=== PATIENT | male | born 1980 | race Caucasian/White ===

== ENCOUNTER 2018-04-22 05:01 | Emergency (ER) | payer MEDICAID ==
[~2018-04-22] VITALS: Ht 180.3 cm; Wt 91.0 kg
[~2018-04-22 05:01] MED LIST: ibuprofen
[2018-04-22 07:34] LABS: BASOPHILS % 0.5 % (0.0-2.0); EOSINOPHILS % 2.5 % (0.0-5.0); HEMATOCRIT. 45.4 % (42.0-52.0); HEMOGLOBIN. 15.5 g/dL (14.0-18.0); LYMPHOCYTES % 47.5 % (20.0-50.0); MEAN CORPUSCULAR HEMOGLOBIN 32.3 pg (28.0-32.0); MEAN CORPUSCULAR VOLUME 94.7 fL (80.0-94.0); MEAN PLATELET VOLUME 8.8 fl (7.4-10.4); MONOCYTES % 9.2 % (2.0-8.0); NEUTROPHILS % 40.3 % (40.0-76.0); PLATELET 169 x1000/uL (130-400); RED CELL DISTRIBUTION WIDTH 12.7 % (11.6-14.6)
[2018-04-22 07:35] LABS: CHLORIDE 105 mEq/L (98-107)
[2018-04-22 07:37] LABS: INR 1.1; PROTHROMBIN TIME 10.7 sec (9.1-11.1)
[2018-04-22] MEDS ORDERED: METOCLOPRAMIDE HCL 10MG/2ML VIAL IV ONE (07:45)
[2018-04-22] MEDS ORDERED: DIPHENHYDRAMINE 50MG/ML VIAL IV ONE (07:45)
[2018-04-22] MEDS ORDERED: SODIUM CHLORIDE 0.9% 1,000 ML IV ONE (07:45)
[2018-04-22 09:19] VITALS: BP 124/74
== END 2018-04-22 09:19 | disposition home or self-care (01) ==
LOC: ER 05:27
DX: R55 Syncope and collapse (principal); R07.89 Other chest pain; R51 Headache; R42 Dizziness and giddiness; F14.10 Cocaine abuse, uncomplicated; R11.0 Nausea; D72.819 Decreased white blood cell count, unspecified; Z98.2 Presence of cerebrospinal fluid drainage device
CPT/HCPCS: 36415; 70360; 70450; 71045; 74018; 80053; 84484; 85025; 85610; 93005; 96361; 96374; 96375; 99285; J1200; J2765; J7030

== ENCOUNTER 2018-06-25 00:38 | Emergency (ER) | payer MEDICAID ==
[~2018-06-25] VITALS: Ht 180.3 cm; Wt 93.0 kg
[2018-06-25] MEDS ORDERED: TETRACAINE 0.5% OPHTH DROPS 4ML RIGHTEYE ONE (01:15)
[2018-06-25] MEDS ORDERED: FLUORESCEIN SODIUM 1MG/STRIP RIGHTEYE ONE (01:15)
[2018-06-25 01:55] VITALS: BP 118/76
== END 2018-06-25 02:08 | disposition home or self-care (01) ==
LOC: ER 00:38
DX: H10.023 Other mucopurulent conjunctivitis, bilateral (principal); F17.200 Nicotine dependence, unspecified, uncomplicated; R03.0 Elevated blood-pressure reading, without diagnosis of hypertension; Z98.890 Other specified postprocedural states
CPT/HCPCS: 99283

== ENCOUNTER 2018-11-09 17:32 | Emergency (ER) | payer MEDICAID ==
[~2018-11-09] VITALS: Ht 180.3 cm; Wt 104.0 kg
[2018-11-09] MEDS ORDERED: IBUPROFEN 800MG TABLET PO ONE (23:15)
[2018-11-09 23:47] VITALS: BP 128/78
== END 2018-11-09 23:49 | disposition home or self-care (01) ==
LOC: ER 18:16
DX: M54.5 Low back pain (principal); M54.2 Cervicalgia; X50.0XXA Overexertion from strenuous movement or load, initial encounter; Y93.89 Activity, other specified; Y92.89 Other specified places as the place of occurrence of the external cause; Y99.0 Civilian activity done for income or pay
CPT/HCPCS: 99283

== ENCOUNTER 2019-10-27 14:07 | Emergency (ER) | payer MEDICAID ==
[~2019-10-27] VITALS: Ht 172.7 cm; Wt 90.0 kg
[2019-10-27] MEDS ORDERED: SODIUM CHLORIDE 0.9% 1,000 ML IV ONE (15:49)
[2019-10-27 16:12] LABS: BASOPHILS % 0.6 % (0.0-2.0); EOSINOPHILS % 0.3 % (0.0-5.0); HEMATOCRIT. 43.2 % (42.0-52.0); HEMOGLOBIN. 14.7 g/dL (14.0-18.0); LYMPHOCYTES % 29.5 % (20.0-50.0); MEAN CORPUSCULAR HEMOGLOBIN 32.4 pg (28.0-32.0); MEAN CORPUSCULAR VOLUME 95.4 fL (80.0-94.0); MEAN PLATELET VOLUME 8.6 fl (7.4-10.4); MONOCYTES % 7.9 % (2.0-8.0); NEUTROPHILS % 61.7 % (40.0-76.0); PLATELET 183 x1000/uL (130-400); RED BLOOD CELL COUNT 4.53 mill/uL (4.7-6.1); RED CELL DISTRIBUTION WIDTH 12.9 % (11.6-14.6)
[2019-10-27 16:16] LABS: CHLORIDE 106 mEq/L (98-107)
[2019-10-27 21:12] VITALS: BP 132/64
== END 2019-10-27 21:14 | disposition home or self-care (01) ==
LOC: ER 14:07
DX: R07.89 Other chest pain (principal); R42 Dizziness and giddiness; I10 Essential (primary) hypertension; Z98.2 Presence of cerebrospinal fluid drainage device
CPT/HCPCS: 36415; 70450; 71045; 74018; 80053; 84484; 85025; 93005; 96360; 96361; 99285; J7030

== ENCOUNTER 2019-12-06 07:39 | Emergency (ER) | payer MEDICAID ==
[~2019-12-06] VITALS: Ht 180.3 cm; Wt 95.5 kg
[2019-12-06 09:15] VITALS: BP 135/88
== END 2019-12-06 09:15 | disposition home or self-care (01) ==
LOC: ER 07:39
DX: J06.9 Acute upper respiratory infection, unspecified (principal); Z95.9 Presence of cardiac and vascular implant and graft, unspecified
CPT/HCPCS: 93005; 99283